=== PATIENT | male | born 1950 | race Caucasian/White ===

== ENCOUNTER 2016-10-19 10:50 | Day surgery (SDC) | payer BC ==
[~2016-10-19] VITALS: Ht 182.9 cm; Wt 92.5 kg
[~2016-10-19 10:50] MED LIST: LIPITOR10 MG PO
[2016-10-19 11:21] VITALS: BP 148/91
[2016-10-19 16:10] VITALS: BP 151/80
[2016-10-19 16:50] VITALS: BP 150/88
== END 2016-10-19 16:55 | disposition home or self-care (01) ==
LOC: SDC 10:50
DX: H27.132 Posterior dislocation of lens, left eye (principal); E78.5 Hyperlipidemia, unspecified
CPT/HCPCS: J0690; J2250; J3300